=== PATIENT | female | born 1990 | race Caucasian/White ===

== ENCOUNTER 2017-09-09 09:40 | Emergency (ER) | payer SELFPAY ==
[~2017-09-09] VITALS: Ht 170.2 cm; Wt 149.2 kg
[2017-09-09 09:45] VITALS: BP 169/96; PULSE 97; RESP 16; TEMP 98.7; O2SAT 97
[2017-09-09] MEDS ORDERED: CIPRHC10A LEFT EAR (10:12)
[2017-09-09] MEDS ORDERED: AUGM875T3 PO (10:12)
--- NOTE | 2017-09-09 10:12 | PD ---
HPI Chief Complaint: ENT Complaint Time Seen by Provider: 09:49 Travel History International Travel<30 days: No Contact w/Intl Traveler<30days: No Traveled to known affect area: No History of Present Illness HPI This Is a 27-year-old woman who presents to the emergency department complaining of left ear pain. She states she tried to pop up and for a left ear and then he was using a Q-tip and it feels like maybe got stuck in her ear. A couple days ago. She had worsening pain since then. She's not had any drainage from the ear. No fevers or chills. No other complaints. History Past Medical History Medical History: Denies Significant Hx Tetanus Vaccination: > 5 Years Influenza Vaccination: No Past Surgical History Surgical History: No Previous Surgery Social History Alcohol Use: No Tobacco Use: No Allergies-Medications (Allergen,Severity, Reaction): Coded Allergies: No Known Allergies (Unverified , 09/09/17) Reported Meds & Prescriptions Reported Meds & Active Scripts Active No Active Prescriptions or Reported Medications Review of Systems Except as stated in HPI: all other systems reviewed are Neg Physical Exam Narrative GENERAL: Well-appearing 27 year-old woman, no acute distress. SKIN: Focused skin assessment warm/dry. HEAD: Atraumatic. Normocephalic. ENT: No nasal bleeding or discharge. Mucous membranes pink and moist. Examination of the left ears shows normal external appearance. There is no evidence of drainage. She is a lot of irritation to breathe the ear canal. The TM is not easily visible and appears to be some debris and inflammation of the eardrum itself. I don't see any definite foreign body. NECK: Trachea midline. No JVD. Data Data Last Documented VS Vital Signs Date Time Temp Pulse Resp B/P (MAP) Pulse Ox O2 Delivery O2 Flow Rate FiO2 09/09/17 09:45 98.7 97 16 169/96 (120) 97 MDM Medical Decision Making Medical Screen Exam Complete: Yes Emergency Medical Condition: Yes Differential Diagnosis Otitis externa, otitis media, foreign body, other Narrative Course Medical decision making 27-year-old with otitis externa. I don't see any definite foreign body in the ear but is stable to completely exclude is a TM is not completely visible. We' ll recommend continue Ciprodex drops, oral antibiotics, and return for any worsening symptoms. Diagnosis Primary Impression: Otitis externa Additional Impression: Otitis media Med/Other Pt SpecificInfo: Prescription(s) given Scripts Amoxicillin-Clavulanate (Augmentin) 875-125 Mg Tab 1 TAB PO BID for Infection for 7 Days, #14 TAB 0 Refills Prov: Eladio Buchanan MD 09/09/17 Ciprofloxacin-Hydrocortisone Otic Drops (Cipro Hc Otic Drops) 0.2-1% Susp 3 DROP LEFT EAR BID for Infection, #1 BOTTLE 0 Refills Prov: Eladio Buchanan MD 09/09/17 Disposition: 01 DISCHARGE HOME Condition: Stable Eladio Buchanan MD Sep 09, 2017 10:12
== END 2017-09-09 10:20 | disposition home or self-care (01) ==
LOC: PHED 09:40
DX: H60.92 Unspecified otitis externa, left ear (principal)
CPT/HCPCS: 99283